=== PATIENT | male | born 1980 | race Caucasian/White ===

== ENCOUNTER 2016-09-16 16:50 | Emergency (ER) | payer SELFPAY ==
[2016-09-16 17:40] LABS: BASOPHILS # (AUTO) 0.15 10*3/UL; BASOPHILS % (AUTO) 1.1 % (0-1); EOSINOPHILS # (AUTO) 0.45 10*3/UL; EOSINOPHILS % (AUTO) 3.4 % (0-8); HEMATOCRIT 44.7 % (42.0-52.0); HEMOGLOBIN 15.4 g/dL (14.0-18.0); LYMPHOCYTES # (AUTO) 2.55 10*3/uL; MEAN CORPUSCULAR HEMOGLOBIN 29.2 PG (27-31); MEAN CORPUSCULAR HGB CONC 34.5 g/dL (33-37); MEAN CORPUSCULAR VOLUME 84.8 FL (80-90); MEAN PLATELET VOLUME 10.6 FL (7.4-12.2); MONOCYTES # (AUTO) 1.15 10*3/UL (0.3-0.8); MONOCYTES % (AUTO) 8.7 % (5-15); NEUTROPHILS # (AUTO) 8.87 10*3/UL; NEUTROPHILS % (AUTO) 67.2 % (50-80); RED BLOOD COUNT 5.27 10^6/uL (4.70-6.10)
[2016-09-16 17:42] LABS: PLATELET MORPHOLOGY COMMENT NORMAL MORPHOLOGY (NORM); RBC MORPHOLOGY COMMENT NORMAL MORPHOLOGY (NORM); WBC MORPHOLOGY COMMENT NORMAL MORPHOLOGY (NORM)
[2016-09-16 17:47] LABS: BLOOD UREA NITROGEN 13 mg/dL (7-22); BUN/CREATININE RATIO 14.44 (6-20); CALCIUM 9.5 mg/dL (8.7-10.7); EST GLOMERULAR FILTRATION > 60 (>60 ml/min/1.73m(2)); SERUM ALBUMIN 4.4 g/dL (3.5-4.8)
[2016-09-16 17:50] LABS: SALICYLATE < 1.0 mg/dl (0-20)
[2016-09-16 18:01] LABS: BILIRUBIN,URINE NEGATIVE (NEG); COLOR,URINE YELLOW; GLUCOSE, URINE (UA) NEGATIVE (NEG); NITRATE,URINE NEGATIVE (NEG); OCCULT BLOOD,URINE NEGATIVE (NEG); PROTEIN,URINE NEGATIVE (NEG); UROBILINOGEN,URINE 0.2 EU/dL (0.2)
[2016-09-16 18:14] LABS: CLARITY,URINE CLEAR (CLEAR)
[2016-09-16 18:15] LABS: AMPHETAMINE SCREEN POSITIVE (NEG); CANNABINOID SCREEN,URINE NEGATIVE (NEG); COCAINE SCREEN NEGATIVE (NEG); METHADONE URINE SCREEN NEGATIVE (NEG); METHAMPHETAMINES SCREEN,URINE NEGATIVE (NEG); OPIATE SCREEN,URINE NEGATIVE (NEG); URINE SAMPLE TYPE CLEAN CATCH URINE
[2016-09-16 18:16] LABS: FREE T4 (FREE THYROXINE) 0.96 ng/dL (0.93-1.71)
[2016-09-16 18:53] VITALS: RESP 18
--- NOTE | 2016-09-16 19:08 | PDOC ---
Psych/Suicidal/OD HPI - General Chief Complaint: Suicidal Ideation / Attempt Stated Complaint: SUICIDAL IDEATIONS/LIFE IS UNMANAGEABLE Date Seen by Provider: 09/16/16 Time Seen by Provider: 18:20 Source: POSITIVE: Patient, Police, RN/MD (Counselor for [facility]) Exam Limitations: POSITIVE: No limitations Nurse's Notes Reviewed & Considered: Yes - History of Present Illness Initial Comments: The patient is a 36-year-old male. He is brought into the emergency room in the custody of a police lieutenant precinct. Patient states he's been having suicidal ideation. He states he is recently lost his job as well as his girlfriend. The patient has been in legal difficulties, apparently due to substance abuse. He was visiting his [employer] officer today and acknowledges that he has been using methamphetamine and is also stolen some narcotic from his grandmother and has been using a controlled narcotic substance. He tested positive for oxycodone and amphetamines. When he returned of this he told the [employer] officer that he wanted to "blow my head off". He states his father committed suicide. He states he does not inject illegal substances but apparently inhales them nasally. Timing: REPORTS: Gradual Duration: <1 week Severity: Moderate Quality: REPORTS: Other (Patient denies any pain anywhere) Intent: REPORTS: Prior Suicidal Thoughts Context: REPORTS: Lost Job, Other ( from his girlfriend. Arrested for parole violation.) Associated Symptoms: REPORTS: Depressed, Suicidal Thoughts How did ingestion/attempt come to attention: Failed drug test by [employer] officer. Arrived By: REPORTS: Police Similar Symptoms Previously: Yes Recent Care Received: REPORTS: Denies Any Prior Injuries Related to Current Complaint?: No - Patient Home Medications Home Medications: Home Medications Medication Instructions Recorded Confirmed Ibuprofen 800 mg ORAL TID PRN #100 tab 07/20/11 09/16/16 - Patient Allergies Allergies/Adverse Reactions: Allergies Allergy/AdvReac Type Severity Reaction Status Date / Time adhesive Allergy Intermediate HIVES Verified 09/16/16 18:54 Past Medical History - heen HEENT History: Denies History Cardiovascular History: Denies History Respiratory History: Other (please comment) Additional Respiratory History: CHRONIC TOBACCO USE Gastrointestinal History: Denies History Genitourinary History: Denies History Endocrine History: Denies History Musculoskeletal History: Joint Pain Prosthesis or Implant: No Additional Musculoskeletal History: CHRONIC BILAT KNEE PAIN. 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 Blood Disorders: Denies History Psychiatric History: Depression, Bi Polar Disorder History of Sexually Transmitted Diseases: No Cancer History: Denies History In Past Year Been Physically Harmed or Verbally Threatened: No (PER PATIENT) History of MDRO: Unknown History of Other Communicable Diseases: No Tobacco Use: Current Every Day Smoker Alcohol Use: None Substance Use Type: Opiate Pain Medication, Methamphetamines Previous Surgical History: Yes Type / Date of Surgery: BILATERAL KNEE SCOPES, HERNIA REPAIR Anesthesia Reactions: No Malignant Hyperthermia: No Family History of Malignant Hyperthermia: No Significant Family History: No pertinent family hx Past Medical History Reviewed: Reviewed - No Changes ROS - Limitations ROS Limitations: No Limitations Constitution: REPORTS: Denies Symptoms Cardiovascular: REPORTS: Denies Cardiac Symptoms Respiratory: REPORTS: Denies Resp Symptoms Neurological: REPORTS: Denies Neuro Symptoms Gastrointestinal: REPORTS: Denies GI Symptoms Endocrine: REPORTS: Denies Symptoms Musculoskeletal: REPORTS: Denies MS Symptoms Genitourinary: REPORTS: Denies Symptoms Eyes: REPORTS: Denies Symptoms ENT: REPORTS: Denies Symptoms Skin: REPORTS: Denies Skin Symptoms Lympathic: REPORTS: Denies Lympathic Symptoms Immunologic: POSITIVE: Denies Symptoms Psychiatric: POSITIVE: Denies Psych Symptoms Psych/Suicidal/OD Exam - General Appearance General Appearance: POSITIVE: No Acute Distress, Alert - HEENT HEENT: POSITIVE: Head Inspection Nml, Eyes Inspection Nml, Ears Inspection Nml, Nose Inspection Nml, Oral/Dental Inspect. Nml, Pharynx Inspect. Nml, PERRL, EOMI - Pupil Size Pupil Size: 3 mm: Bilateral (PERRLA) - Neurological/Psychological Mental Status: POSITIVE: Appropriate Mood (Depressed mood), Appropriate Affect ( Depressed affect). 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 Intact as Tested Sensory/Motor: POSITIVE: Normal Motor Response, Normal Sensory Response, Normal Reflexes, Normal Gait When asked, pt ADMITS continued consideration of suicide:: No - Neck/Back Neck/Back: POSITIVE: Normal Inspection, Supple - Respiratory Respiratory: POSITIVE: No Respiratory Distress, Breath Sounds Normal - CVS Cardiovascular: POSITIVE: Regular Rate and Rhythm, Heart Sounds Normal, Equal Pulses, Strong Pulses Peripheral Pulses: Radial (R): 2+, Radial (L): 2+ - Abdomen Abdomen: Soft: (All Quadrants), Normal Bowel Sounds: (All Quadrants), Denies Tenderness: (All Quadrants), No Splenomegaly: (All Quadrants), No Hepatomegaly: (All Quadrants), No Guarding: (All Quadrants), No Rebound: (All Quadrants), No Palpable Pulse: (All Quadrants), No Palpabale Mass: (All Quadrants), No Distention: (All Quadrants), No Rigidity: (All Quadrants) - Skin Skin: POSITIVE: Intact, Normal For Race, Warm, Dry, No Rash - Extremities Extremity: Non-Tender: (All Extremities), Normal ROM: (All Extremities), Normal Inspection: (All Extremities) Psych/Suicidal/OD Progress - Results Reviewed by me Lab Results Reviewed: Yes Lab Results:: Laboratory Results 09/16/16 09/16/16 09/16/16 Range/Units 17:23 17:24 17:53 WBC 13.21 H (4.8-10.8) 10^3/uL RBC 5.27 (4.70-6.10) 10^6/uL Hgb 15.4 (14.0-18.0) g/dL Hct 44.7 (42.0-52.0) % MCV 84.8 (80-90) FL MCH 29.2 (27-31) PG MCHC 34.5 (33-37) g/dL RDW Std Deviation 42.1 (39-50) fL RDW Coeff of [place] 13.7 (11.5-14.5) % Plt Count 330 (140-350) 10*3/uL MPV 10.6 (7.4-12.2) FL Immature Gran % (Auto) 0.3 (0-5) % Neut % (Auto) 67.2 (50-80) % Lymph % (Auto) 19.3 (10-50) % [place] % (Auto) 8.7 (5-15) % Eos % (Auto) 3.4 (0-8) % Baso % (Auto) 1.1 H (0-1) % Immature Gran # (Auto) 0.04 10*3/UL Neut # (Auto) 8.87 10*3/UL Lymph # (Auto) 2.55 10*3/uL [place] # (Auto) 1.15 H (0.3-0.8) 10*3/UL Eos # (Auto) 0.45 10*3/UL Baso # (Auto) 0.15 10*3/UL WBC Morphology Comment Normal morphology (NORM) Plt Morphology Comment Normal morphology (NORM) RBC Morph Comment Normal morphology (NORM) Sodium 142 (135-145) meq/L Potassium 4.0 (3.8-5.2) meq/L Chloride 108 (98-112) meq/L Carbon Dioxide 24 (23-33) meq/L Anion Gap 10 (5-20) BUN 13 (7-22) mg/dL Creatinine 0.9 (0.70-1.50) mg/dL Estimated GFR > 60 (>60 ml/min/1.73m(2)) BUN/Creatinine Ratio 14.44 (6-20) Glucose 95 (78-110) mg/dL Calculated Osmolality 293.0 H (267-292) mOsm/kg Calcium 9.5 (8.7-10.7) mg/dL Total Bilirubin 0.5 (0.3-1.2) mg/dL AST 19 L (21-57) IU/L ALT 31 (21-72) IU/L Alkaline Phosphatase 99 (38-126) IU/L Total Protein 7.4 (6.1-8.0) g/dL Albumin 4.4 (3.5-4.8) g/dL Globulin 3.0 (2.50-4.10) g/dL Albumin/Globulin Ratio 1.40 (1.3-2.0) mg/g TSH (0.2700-4.2000) uIU/mL Free T4 (0.93-1.71) ng/dL Ur Collection Type Clean catch urine Urine Color Yellow Urine Clarity Clear (CLEAR) Urine pH 7.0 (5.0-8.5) Ur Specific [place] 1.020 (1.005-1.030) U Specif Grav (Refrac) 1.020 Urine Protein Negative (NEG) mg/dl Urine Glucose (UA) Negative (NEG) mg/dL Urine Ketones Negative (NEG) Urine Occult Blood Negative (NEG) Urine Nitrate Negative (NEG) Urine Bilirubin Negative (NEG) Urine Urobilinogen 0.2 (0.2) EU/dL Ur Leukocyte Esterase Negative (NEG) Ur Culture Indicated? Culture not set Salicylates < 1.0 (0-20) mg/dl Urine Opiates Screen Negative (NEG) Ur Buprenorphine Negative (NEG) Ur Oxycodone Screen Positive H (NEG) Urine Methadone Screen Negative (NEG) Ur Propoxyphene Screen Negative (NEG) Acetaminophen < 10.0 (0-30) ug/mL Barbiturate Screen Negative (NEG) U Tricyclic Antidepress Negative (NEG) Phencyclidine Screen Negative (NEG) Amphetamines Screen Positive H (NEG) U Methamphetamines Scrn Negative (NEG) Benzodiazepines Screen Negative (NEG) Cocaine Screen Negative (NEG) U Marijuana (THC) Screen Negative (NEG) Serum Alcohol < 10 (0-10) mg/dL 09/16/16 Range/Units 17:55 WBC (4.8-10.8) 10^3/uL RBC (4.70-6.10) 10^6/uL Hgb (14.0-18.0) g/dL Hct (42.0-52.0) % MCV (80-90) FL MCH (27-31) PG MCHC (33-37) g/dL RDW Std Deviation (39-50) fL RDW Coeff of [place] (11.5-14.5) % Plt Count (140-350) 10*3/uL MPV (7.4-12.2) FL Immature Gran % (Auto) (0-5) % Neut % (Auto) (50-80) % Lymph % (Auto) (10-50) % [place] % (Auto) (5-15) % Eos % (Auto) (0-8) % Baso % (Auto) (0-1) % Immature Gran # (Auto) 10*3/UL Neut # (Auto) 10*3/UL Lymph # (Auto) 10*3/uL [place] # (Auto) (0.3-0.8) 10*3/UL Eos # (Auto) 10*3/UL Baso # (Auto) 10*3/UL WBC Morphology Comment (NORM) Plt Morphology Comment (NORM) RBC Morph Comment (NORM) Sodium (135-145) meq/L Potassium (3.8-5.2) meq/L Chloride (98-112) meq/L Carbon Dioxide (23-33) meq/L Anion Gap (5-20) BUN (7-22) mg/dL Creatinine (0.70-1.50) mg/dL Estimated GFR (>60 ml/min/1.73m(2)) BUN/Creatinine Ratio (6-20) Glucose (78-110) mg/dL Calculated Osmolality (267-292) mOsm/kg Calcium (8.7-10.7) mg/dL Total Bilirubin (0.3-1.2) mg/dL AST (21-57) IU/L ALT (21-72) IU/L Alkaline Phosphatase (38-126) IU/L Total Protein (6.1-8.0) g/dL Albumin (3.5-4.8) g/dL Globulin (2.50-4.10) g/dL Albumin/Globulin Ratio (1.3-2.0) mg/g TSH 0.271 (0.2700-4.2000) uIU/mL Free T4 0.96 (0.93-1.71) ng/dL Ur Collection Type Urine Color Urine Clarity (CLEAR) Urine pH (5.0-8.5) Ur Specific [place] (1.005-1.030) U Specif Grav (Refrac) Urine Protein (NEG) mg/dl Urine Glucose (UA) (NEG) mg/dL Urine Ketones (NEG) Urine Occult Blood (NEG) Urine Nitrate (NEG) Urine Bilirubin (NEG) Urine Urobilinogen (0.2) EU/dL Ur Leukocyte Esterase (NEG) Ur Culture Indicated? Salicylates (0-20) mg/dl Urine Opiates Screen (NEG) Ur Buprenorphine (NEG) Ur Oxycodone Screen (NEG) Urine Methadone Screen (NEG) Ur Propoxyphene Screen (NEG) Acetaminophen (0-30) ug/mL Barbiturate Screen (NEG) U Tricyclic Antidepress (NEG) Phencyclidine Screen (NEG) Amphetamines Screen (NEG) U Methamphetamines Scrn (NEG) Benzodiazepines Screen (NEG) Cocaine Screen (NEG) U Marijuana (THC) Screen (NEG) Serum Alcohol (0-10) mg/dL - Patient's Progress Pain Medication Addressed: POSITIVE: Not Applicable School/Work Release Addressed: POSITIVE: Not Applicable Re-Examine Time: 19:00 Re-Examine Comment: Patient is medically stable. Patient has been evaluated by counselor [facility], who is making arrangements for further follow- up and treatment. Status: POSITIVE: Unchanged, Re-Examined Poison Control Notification (name of person in comment): No - Medical Clearance for Psych Referral Toxic Causes: NEGATIVE: PCP, Amphetamines, Hallucinogens, Acetaminophen, ASA, ETOH, Other Toxic Ingestion, Other Infectious Causes: NEGATIVE: Meningitis, Encephalitis, Sepsis, Other Metabolic Causes: NEGATIVE: Thyroid, Hypoglycemia, Drug Withdrawal, Hypoxemia, Electrolytes, Other Neurological/Vascular Causes: NEGATIVE: CVA, TIA, Seizure, Trauma, Other Cleared medically for psychiatric referral: Yes ([facility] counselor has evaluated patient in ER) - Consult Consult (If Yes, Name of Consulting MD & Time Called): Yes ([facility] counselor, [id number]) Consulting MD will see pt:: POSITIVE: Other (Per [facility] counselor) Counseled: POSITIVE: Patient, RE: Lab Results, RE: DX, RE: Need for F/U Patient Care Time - Estimated PCT Patient Care Time (In Minutes): 60 Vital Signs - Recent Vital Signs Vital Signs: Vital Signs (Last 8 hours) Temp Pulse Resp BP Pulse Ox 09/16/16 16:50 97.4 F 88 18 103/72 98 - VS Reviewed Vital Signs Reviewed: Yes Discharge Clinical Impression: Suicidal ideation, Polysubstance abuse Discharge Disposition: Other (Disposition per [facility] counselor) Condition: Stable Patient Instructions Given at Discharge: Suicide Prevention for Adults (ED)
[2016-09-16 20:08] VITALS: TEMP 97.6
== END 2016-09-16 20:20 ==
LOC: ER 16:50
DX: R45.851 Suicidal ideations (principal); F19.10 Other psychoactive substance abuse, uncomplicated
CPT/HCPCS: 36415; 80053; 80305; 80320; 80329; 81003; 84439; 84443; 85025; 90791; 99283

== ENCOUNTER → 2016-11-18 | Outpatient (CLI) | payer OTHER ==
--- NOTE | 2016-11-18 14:42 | EKG ---
[address] [address] Measurements Intervals [place] Rate: 67 P: 64 [place]: 127 QRS: 64 QRSD: 100 T: 56 QT: 387 QTc: 402 Interpretive Statements SINUS RHYTHM No previous ECG available for comparison Electronically Signed On 11-21-16 07:55:19 MDT by Jhony Chin MD [email or web address]
[2016-11-18 16:03] LABS: HEMOGLOBIN 13.6 g/dL (14.0-18.0); RED BLOOD COUNT 4.77 10^6/uL (4.70-6.10)
[2016-11-18 16:04] LABS: HEMATOCRIT 39.7 % (42.0-52.0); MEAN CORPUSCULAR HEMOGLOBIN 28.5 PG (27-31); MEAN CORPUSCULAR HGB CONC 34.3 g/dL (33-37); MEAN CORPUSCULAR VOLUME 83.2 FL (80-90); MEAN PLATELET VOLUME 11.3 FL (7.4-12.2)
[2016-11-18 17:30] LABS: BLOOD UREA NITROGEN 14 mg/dL (7-22); BUN/CREATININE RATIO 12.72 (6-20); CALCIUM 9.5 mg/dL (8.7-10.7); EST GLOMERULAR FILTRATION > 60 (>60 ml/min/1.73m(2)); SERUM ALBUMIN 4.2 g/dL (3.5-4.8)
[2016-11-18 17:34] LABS: C-REACTIVE PROTEIN 3.1 mg/dL (0.0-0.9)
== END ==
LOC: MOB EKG 14:31
PROVIDERS: ATTEND Family Medicine
DX: R60.0 Localized edema (principal)
CPT/HCPCS: 36415; 80053; 83880; 85027; 85652; 86140; 93005; 93010

== ENCOUNTER → 2016-11-24 | Outpatient (CLI) | payer OTHER ==
[2016-11-28 13:51] LABS: INTERPRETATION SEE COMMENTS (())
== END ==
LOC: LAB 15:38
PROVIDERS: ATTEND Family Medicine
DX: R60.0 Localized edema (principal)
CPT/HCPCS: 36415; 85610; 85613; 85730; 86038